=== PATIENT | female | born 1990 | race Caucasian/White ===

== ENCOUNTER 2019-02-01 12:11 | Emergency (ER) | payer OTHER ==
[~2019-02-01] VITALS: Ht 165.1 cm; Wt 85.7 kg
[~2019-02-01 12:11] MED LIST: (None)20 M1 PO; ALBU90OI INH; ASPIRIN; AZIT250 PO; BENZ100A PO; BUPR150ER PO; BUSP5 PO; Bactrim Ds Tab1 EACH PO; CEPH500 PO; CYCL10 PO; FAMO20 PO; FLUO20 PO; FLUT.05NI; GABA300 PO; GUAI600T33 PO; GUAIFEN-CODEINE10 ML PO; HYDACE5 PO; IBUP600 PO; IBUP800 PO; IRON150C PO; KETO10 PO; NEOPOLHCSU RIGHTEAR; OXYC5 PO; PENVK500 PO; PRED20 PO; PROM25 PO; Prozac20 MG; RXCLIN PO; RXPENVK250 PO; SPACE CHAMBER1 EACH MC; Silvadene20 GM TOP; TRAM50 PO; TRAZ50 PO; TRIA80TC TOP; TYLENOL PRN; Zofran Odt4 MG SL; Zofran4 MG PO; [UNRECOGNIZED DRUG - REMARK]; [UNRECOGNIZED DRUG - REMARK]; [UNRECOGNIZED DRUG - REMARK]; [UNRECOGNIZED DRUG - REMARK]
[2019-02-01] MEDS ORDERED: Robaxin-750750 MG PO (13:24)
== END 2019-02-01 13:55 | disposition home or self-care (01) ==
LOC: ER 12:11
DX: S43.402A Unspecified sprain of left shoulder joint, initial encounter (principal); F17.210 Nicotine dependence, cigarettes, uncomplicated; V40.9XXA Unspecified car occupant injured in collision with pedestrian or animal in traffic accident, initial encounter
CPT/HCPCS: 73030; 96372; 99284-25; J1885